=== PATIENT | female | born 1945 | race Caucasian/White ===

== ENCOUNTER 2016-10-28 22:45 | Inpatient (IN) | payer OTHER, MEDICARE ==
[~2016-10-28] VITALS: Ht 167.6 cm; Wt 76.2 kg
[2016-10-28 22:45] VITALS: BP 130/79; PULSE 92; RESP 20; TEMP 97.4; O2SAT 97
--- NOTE | 2016-10-28 23:14 | NUR ---
Placed in room 08 . Placed on pvc monitor, blood pressure machine and pulse oximeter. To gown for exam. Side rails up. Report given to MERARY Last.
--- NOTE | 2016-10-28 23:33 | NUR ---
Pt presents to ED with c/o nausea x2 hours, and lower abdominal pain 6/10. Pt denies weakness or dizziness. A&Ox4, denies SOb or chestpain, denies N/V/D. Skin intact. Will continue to monitor
--- NOTE | 2016-10-28 23:48 | NUR ---
ER at bedside examining patient.
--- NOTE | 2016-10-28 23:49 | NUR ---
Rishi brian in ED - 10/28/16 at 2350 by SDEDLJ YANELY Summers at bedside examining patient.
[2016-10-28] MEDS ORDERED: NACL 0.9% 1,000 ML IV ONE (23:55)
[2016-10-29 00:21] LABS: HEMATOCRIT 46.7 % (36-48); HEMOGLOBIN 15.6 g/dL (12.0-16.0); MEAN CORPUSCULAR HEMOGLOBIN 27 pg (27-31); MEAN CORPUSCULAR HGB CONC 34 % (32-36); MEAN CORPUSCULAR VOLUME 82 fL (79.0-98.0); PLATELET COUNT (AUTO) 246 K/uL (130-430); RED BLOOD CELL COUNT(AUTO) 5.71 MIL/uL (4.2-6.2); RED CELL DISTRIBUTION WIDTH 14.6 % (9.0-15.0)
[2016-10-29 00:24] LABS: ANION GAP 7 (5-15); CALCIUM 9.1 mg/dL (8.4-11.0); CHLORIDE 104 mmol/L (98-107); CREATININE 0.89 mg/dL (0.55-1.30); GLUCOSE 137 mg/dL (70-99); POTASSIUM 3.9 mmol/L (3.5-5.1); SODIUM SERUM 141 mmol/L (136-145); UREA NITROGEN, BLOOD 19 mg/dL (8-21)
[2016-10-29 00:35] LABS: ALANINE AMINOTRANSFERASE 23 U/L (12-78); ALBUMIN 3.8 g/dL (3.4-4.8); ASPARTATE AMINOTRANSFERASE 22 U/L (10-37); TOTAL BILIRUBIN 0.5 mg/dL (0.0-1.0); TOTAL PROTEIN, SERUM 7.5 g/dL (6.4-8.3)
--- NOTE | 2016-10-29 00:35 | NUR ---
Pt in bed appeared resting comfortably. daughter at bedside
[2016-10-29 00:45] LABS: BAND % (MANUAL) 4 % (0-6); BASOPHILS % (MANUAL) 0 % (0-2); EOSINOPHILS % (MANUAL) 0 % (0-7); LYMPHOCYTES % (MANUAL) 4 % (20-46); MONOCYTES % (MANUAL) 4 % (0-11)
[2016-10-29 00:51] LABS: BILIRUBIN,URINE NEGATIVE (NEGATIVE); BLOOD, URINE TRACE (NEGATIVE); CLARITY/URINE CLEAR (CLEAR); COLOR,URINE YELLOW (YELLOW); GLUCOSE,URINE NEGATIVE (NEGATIVE); KETONES,URINE NEGATIVE (NEGATIVE); LEUKOCYTE ESTERASE ,URINE NEGATIVE (NEGATIVE); NITRITE, URINE NEGATIVE (NEGATIVE); PH,URINE 5.5 (5.0-8.0); PROTEIN URINE TRACE (NEGATIVE); UROBILINOGEN,URINE 0.2 (0.2-1.0)
[2016-10-29 00:54] LABS: BACTERIA,URINE FEW /HPF (None Seen); MUCUS,URINE 1+ /LPF (None Seen); RBC,URINE 0-3 /HPF (0-3); WBC,URINE 0-3 /HPF (0-3)
[2016-10-29] MEDS ORDERED: NACL 0.9% 1,000 ML IV ONE (01:43)
--- NOTE | 2016-10-29 01:50 | NUR ---
Consent for CT abdomen/pelvis with contrast obtained. Pt verbalized understanding
[2016-10-29] MEDS ORDERED: MORPHINE 2 MG/ML INJ. SYRINGE IVP ONE ×2 (02:00)
[2016-10-29] MEDS ORDERED: ONDANSETRON HCL 4 MG/2 ML VIAL IVP ONE ×2 (02:00)
[2016-10-29] MEDS ORDERED: IOHEXOL 100 ML IV ONE (02:12)
--- NOTE | 2016-10-29 02:15 | NUR ---
pt taken off ED via wheelchair by radiologist for CT, no distress noted
--- NOTE | 2016-10-29 02:40 | NUR ---
Pt returned to ED
--- NOTE | 2016-10-29 03:00 | NUR ---
Medication reconciliation completed with information provided by pt. Any prior medication reconciliation on file was reviewed and corrected.
[2016-10-29] MEDS ORDERED: LEVO125T8 PO (03:50)
[2016-10-29] MEDS ORDERED: LETR2.5T3 PO (03:50)
[2016-10-29] MEDS ORDERED: LIP10 PO (03:50)
[2016-10-29] MEDS ORDERED: ONDANSETRON HCL 4 MG/2 ML VIAL IVP PRN (04:00)
[2016-10-29] MEDS ORDERED: MORPHINE 2 MG/ML INJ. SYRINGE IVP PRN (04:00)
--- NOTE | 2016-10-29 04:10 | NUR ---
Patient will be admitted to care of . Admitted to med-surg unit. Will go to room 103A. Belongings list completed. Summary report printed. Report given to Jose Zazueta
--- NOTE | 2016-10-29 04:10 | NUR ---
ADMISSION NOTE Received patient from ER via gurney. Patient admitted with diagnosis of A. Colitis. Patient is awake, alert, oriented X . Patient oriented to hospital room, call light, toileting, pain management and safety-teach back done. Patient informed that Jose will be her nurse and that their room number is 103A. Personal belongings checked and A. Belongings List documented. Call light within reach.
--- NOTE | 2016-10-29 04:15 | NUR ---
Initial Notes Received patient from ER via kaylie. Patient awake, alert, oriented, daughter at bedside. Patient denies any acute distress at this time. Breathing even and unlabored on room air. IV site to right forearm #20, patent/clean/dry. No complaints of nausea at this time. Educated patient on use of call light and fall precautions, patient verbalized understanding. Call light in hand, will continue to monitor.
[2016-10-29 04:29] VITALS: BP 152/75; PULSE 87; RESP 18; TEMP 97.2; O2SAT 98
--- NOTE | 2016-10-29 04:30 | NUR ---
Called Dr. Pastor's exchange for consult @[phone]. Spoke to Cait. Nurse is aware.
[2016-10-29] MEDS: D5/0.45 NS 1,000 ML IV SCH ×2 (04:52→19:45)
[2016-10-29] MEDS: metroNIDAZOLE 500 mg/NS 100 ML IV SCH ×3 (04:56→21:38)
[2016-10-29] MEDS ORDERED: metroNIDAZOLE 500 mg/NS 100 ML IV ONE (04:58)
[2016-10-29] MEDS ORDERED: LEVOFLOXACIN 500 MG/D5W 100 ML IV ONE (05:26)
[2016-10-29] MEDS: LEVOFLOXACIN 500 MG/D5W 100 ML IV SCH (05:57)
--- NOTE | 2016-10-29 06:46 | NUR ---
Closing Notes Patient resting in bed with eyes closed, easily aroused. Patient denies any distress or pain at this time. Breathing even and unlabored. IV site patent/clean/dry, no S/S infection/infiltration noted. Needs addressed throughout shift. Call light in hand, fall precautions in place. Will continue to monitor for changes and safety, and endorse all patient care/needs to oncoming nurse.
[2016-10-29 08:00] VITALS: BP 148/73; PULSE 80; RESP 18; TEMP 97.3; O2SAT 97
--- NOTE | 2016-10-29 08:00 | NUR ---
INITIAL NOTE PT LAYING IN BED, AWAKE, ALERT AND ORIENTED X4, NO S/S OF DISTRESS NOTED, VSS, NO COMPLAINT OF ABDOMINAL PAIN AT THIS TIME, IV FLUIDS INFUSING TO RFA, SITE PATENT AND INTACT, NO S/S OF INFILTRATION NOTED. PT COMPLAINED OF HEADACHE, PROVIDED ICE PACK TO HEAD AND WILL FOLLOW UP WITH MD. PT REORIENTED TO USE OF CALL LIGHT AND IT IS PLACED WITHIN REACH, SAFETY MEASURES IN PLACE, BED IN LOW POSITION AND LOCKED, WILL FOLLOW UP
--- NOTE | 2016-10-29 10:00 | NUR ---
DR CARBALLO AT BEDSIDE
[2016-10-29] MEDS ORDERED: ACETAMINOPHEN 325 MG TABLET PO PRN (10:45)
--- NOTE | 2016-10-29 11:50 | NUR ---
DR ALVINO CROWDER, PT LAYING IN BED, RESTING, EASY TO AROUSE. PT STATES SHE HAS NO NEEDS AT THIS TIME, WILL CONTINUE TO MONITOR.
[2016-10-29 12:46] VITALS: BP 134/85; PULSE 77; RESP 17; TEMP 97.6; O2SAT 96
--- NOTE | 2016-10-29 14:00 | NUR ---
PT ASSISTED TO RESTROOM, STEADY GAIT NOTED, NO S/S OF DISTRESS NOTED, PT TOLERATED, WELL. PT RETURNED TO BED, SAFETY MEASURES IN PLACE, CALL LIGHT WITHIN REACH, WILL FOLLOW UP.
[2016-10-29] MEDS ORDERED: PROMETHAZINE-DM 6.25 MG-15 MG/5 ML UDC PO PRN (15:15)
[2016-10-29] MEDS: ACETAMINOPHEN 325 MG TABLET PO PRN ×2 (15:31→19:45)
[2016-10-29 16:00] VITALS: BP 142/83; PULSE 78; RESP 18; TEMP 98; O2SAT 96
--- NOTE | 2016-10-29 16:00 | NUR ---
ROUNDS PT LAYING IN BED, STATES SHE HAS NO NEEDS AT THIS TIME, WILL CONTINUE TO MONITOR.
--- NOTE | 2016-10-29 19:00 | NUR ---
CLOSING NOTE PT LAYING IN BED, AWAKE, NO S/S OF DISTRESS NOTED, COMPLAINS OF SLIGHT HEADACHE, WILL ENDORSE TO FOLLOWING SHIFT, IV FLUIDS INFUSING TO RFA AT ORDERED RATE, SITE INTACT AND PATENT, NO S/S OF INFILTRATION NOTED. ALL NEEDS ATTENDED TO THROUGH OUT THE SHIFT, SAFETY MEASURES IN PLACE, CALL LIGHT WITHIN REACH, WILL ENDORSE CARE TO FOLLOWING SHIFT.
--- NOTE | 2016-10-29 19:30 | NUR ---
INITIAL ASSESSMENT: RECEIVE PT IN BED, AWAKE, ALERT AND ORIENTED , C/O HEADACHE 09/28, TOLERABLE, ON ROOM AIR, BREATHING EVENA DN NON LABORED, CHEST CLEAR, ABDOMEN SOFT AND NON DISTENDED, NO COMPLAINT OF ABDOMINAL PAIN AT THIS TIME, DENIES ANY NAUSEA AND VOMITING AT THIS TIME. VITAL STABLE, IV ON RIGHT FOREARM 20 G, INFUSING D51/2NS@ 80 CC/HR, INFUSING WELL, NO INFILTRATION NOTED, PT ABLE TO WALK TO BATHROOM WITH STEADY GAIT, BED SIDE COMMODE PROVIDED TO BEDSIDE FOR EASY ASSESS FOR NIGHTS. PLAN OF CARE DISCUSSED WITH PT AND VERBALIZED UNDERSTANDING, CALL LIGHT WITH IN REACH, SAFETY MEASURES IN PLACE, BED IN LOW POSITION AND LOCKED, WILL CONTINUE TO MONITOR.
--- NOTE | 2016-10-29 19:45 | NUR ---
ADMINISTERED MEDICATION: PT AWAKE, ALERT AND ORIENTED , C/O HEADACHE 09/28, ADMINISTERED TYLENOL 650 PO, ON ROOM AIR, BREATHING EVEN AND NON LABORED, NO COMPLAINT OF ABDOMINAL PAIN AT THIS TIME, DENIES ANY NAUSEA AND VOMITING AT THIS TIME. VITAL STABLE, IV ON RIGHT FOREARM 20 G, INFUSING D51/2NS@ 80 CC/HR, INFUSING WELL, NO INFILTRATION NOTED, PT ABLE TO WALK TO BATHROOM WITH STEADY GAIT, BED SIDE COMMODE AT BEDSIDE. CALL LIGHT WITH IN REACH, SAFETY MEASURES IN PLACE, BED IN LOW POSITION AND LOCKED, WILL CONTINUE TO MONITOR.
[2016-10-29 20:00] VITALS: BP 137/81; PULSE 74; RESP 18; TEMP 98.3; O2SAT 97
--- NOTE | 2016-10-29 21:07 | NUR ---
C/O ABDOMINAL DISCOMFORT: PT AWAKE, ALERT AND ORIENTED , ON ROOM AIR, BREATHING EVEN AND NON LABORED, PT C/O DISCOMFORT FOR ABDOMEN, PAGED DR JOSE CARBALLO AND SPOKE WITH MD AND RECEIVE ORDER FOR PROTONIX IVP, WILL ADMINISTERED. DENIES ANY NAUSEA AND VOMITING AT THIS TIME. VITAL STABLE, IV ON RIGHT FOREARM 20 G, INFUSING D51/2NS@ 80 CC/HR, INFUSING WELL, NO INFILTRATION NOTED, PT ABLE TO WALK TO BATHROOM WITH STEADY GAIT, BED SIDE COMMODE AT BEDSIDE. CALL LIGHT WITH IN REACH, SAFETY MEASURES IN PLACE, BED IN LOW POSITION AND LOCKED, WILL CONTINUE TO MONITOR.
[2016-10-29] MEDS ORDERED: PANTOPRAZOLE SODIUM 40 MG/VIAL (PROTONIX) IVP ONE (21:15)
[2016-10-30] VITALS: BP 127/77; PULSE 71; RESP 18; TEMP 98.7; O2SAT 98
--- NOTE | 2016-10-30 01:36 | NUR ---
RN ROUND: PT SLEEPING, EASILY AWAKE, ON ROOM AIR, BREATHING EVEN AND NON LABORED, DENIES ANY PAIN, NAUSEA AND VOMITING AT THIS TIME. VITAL STABLE, IV ON RIGHT FOREARM 20 G, INFUSING D51/2NS@ 80 CC/HR, INFUSING WELL, NO INFILTRATION NOTED, BED SIDE COMMODE AT BEDSIDE. CALL LIGHT WITH IN REACH, SAFETY MEASURES IN PLACE, BED IN LOW POSITION AND LOCKED, WILL CONTINUE TO MONITOR.
[2016-10-30 04:00] VITALS: BP 120/74; PULSE 77; RESP 18; TEMP 98.3; O2SAT 97
[2016-10-30] MEDS: D5/0.45 NS 1,000 ML IV SCH ×3 (05:00→20:46)
[2016-10-30] MEDS: LEVOFLOXACIN 500 MG/D5W 100 ML IV SCH (05:13)
[2016-10-30] MEDS: metroNIDAZOLE 500 mg/NS 100 ML IV SCH ×3 (05:14→22:04)
[2016-10-30] MEDS: ACETAMINOPHEN 325 MG TABLET PO PRN (05:42)
--- NOTE | 2016-10-30 05:45 | NUR ---
ROUND: PT AWAKE, ALERT AND ORIENTED , C/O HEADACHE 09/28, ADMINISTERED TYLENOL 650 PO, ON ROOM AIR, BREATHING EVEN AND NON LABORED, NO COMPLAINT OF ABDOMINAL PAIN AT THIS TIME, DENIES ANY NAUSEA AND VOMITING AT THIS TIME. VITAL STABLE, IV ON RIGHT FOREARM 20 G, INFUSING D51/2NS@ 80 CC/HR, INFUSING WELL, NO INFILTRATION NOTED, PT ABLE TO WALK TO BATHROOM WITH STEADY GAIT, CALL LIGHT WITH IN REACH, SAFETY MEASURES IN PLACE, BED IN LOW POSITION AND LOCKED, WILL CONTINUE TO MONITOR.
--- NOTE | 2016-10-30 06:27 | NUR ---
CLOSING NOTE: PT AWAKE, ALERT AND ORIENTED, ON ROOM AIR, BREATHING EVEN AND NON LABORED, NO COMPLAINT OF ABDOMINAL PAIN AT THIS TIME, DENIES ANY NAUSEA AND VOMITING AT THIS TIME. VITAL STABLE, IV ON RIGHT FOREARM 20 G, INFUSING D51/2NS@ 80 CC/HR, INFUSING WELL, NO INFILTRATION NOTED, PT ABLE TO WALK TO BATHROOM WITH STEADY GAIT, CALL LIGHT WITH IN REACH, SAFETY MEASURES IN PLACE, BED IN LOW POSITION AND LOCKED, WILL ENDORSE TO AM NURSE.
[2016-10-30 07:16] LABS: ALBUMIN 2.9 g/dL (3.4-4.8); BILIRUBIN,DIRECT 0.1 mg/dL (0.0-0.3); TOTAL BILIRUBIN 0.3 mg/dL (0.0-1.0); TOTAL PROTEIN, SERUM 6.3 g/dL (6.4-8.3)
--- NOTE | 2016-10-30 07:27 | NUR ---
REPORT GIVEN TO MANUEL REAGAN. PT STABLE AND NO DISTRESS.
[2016-10-30 08:06] VITALS: BP 135/85; PULSE 70; RESP 18; TEMP 97.5; O2SAT 97
--- NOTE | 2016-10-30 08:15 | NUR ---
INITIAL NOTE PT LAYING IN BED, EASY TO AROUSE, NO S/S OF DISTRESS NOTED, COMPLAINT OF MILD, LINGERING HEADACHE, IV TO RFA INTACT AND INFUSING AT ORDERED RATE, NO S/S OF INFILTRATION NOTED, EVEN UNLABORED BREATHING ON ROOM AIR, PT REORIENTED TO USE OF CALL LIGHT AND IT IS PLACED WITHIN REACH, SAFETY MEASURES IN PLACE, BED IN LOW POSITION AND LOCKED, WILL CONTINUE TO MONITOR,
[2016-10-30] MEDS: PANTOPRAZOLE SODIUM 40 MG/VIAL (PROTONIX) IVP SCH (08:57)
[2016-10-30] MEDS: KETOROLAC TROMETHAMINE 15 MG VIAL IVP PRN ×2 (08:58→22:04)
--- NOTE | 2016-10-30 10:00 | NUR ---
ROUNDS PT ASSISTED IN PARTIAL BED BATHE AND LINEN CHANGED. SITTING ON BEDSIDE CHAIR, WITH STUDENTS AT BEDSIDE, PT STATES SHE HAS NO PAIN AT THIS TIME, CALL LIGHT WITHIN REACH, WILL FOLLOW UP.
[2016-10-30 10:33] LABS: BASOPHILS % (AUTO) 0.4 % (0.0-2.0); EOSINOPHILS # (AUTO) 0.2 K/uL (0.0-0.4); EOSINOPHILS % (AUTO) 4.3 % (0.0-4.0); HEMATOCRIT 42.8 % (36-48); LYMPHOCYTES # (AUTO) 1.2 K/uL (1.0-5.5); LYMPHOCYTES % (AUTO) 28.8 % (20.5-51.5); MEAN CORPUSCULAR HEMOGLOBIN 28 pg (27-31); MEAN CORPUSCULAR HGB CONC 33 % (32-36); MONOCYTES # (AUTO) 0.6 K/uL (0.0-1.0); NEUTROPHILS # (AUTO) 2.1 K/uL (1.8-7.7); NEUTROPHILS % (AUTO) 52.5 % (40.0-70.0); PLATELET COUNT (AUTO) 190 K/uL (130-430); RED BLOOD CELL COUNT(AUTO) 5.07 MIL/uL (4.2-6.2); RED CELL DISTRIBUTION WIDTH 14.7 % (9.0-15.0); WHITE BLOOD COUNT (AUTO) 4.1 K/uL (4.8-10.8)
[2016-10-30 10:51] LABS: ALANINE AMINOTRANSFERASE 30 U/L (12-78); ANION GAP 6 (5-15); ASPARTATE AMINOTRANSFERASE 24 U/L (10-37); CALCIUM 8.3 mg/dL (8.4-11.0); CHLORIDE 110 mmol/L (98-107); CREATININE 0.79 mg/dL (0.55-1.30); GLUCOSE 83 mg/dL (70-99); POTASSIUM 3.3 mmol/L (3.5-5.1); SODIUM SERUM 144 mmol/L (136-145); TOTAL BILIRUBIN 0.2 mg/dL (0.0-1.0); TOTAL PROTEIN, SERUM 6.4 g/dL (6.4-8.3); UREA NITROGEN, BLOOD 5 mg/dL (8-21)
[2016-10-30 10:59] LABS: MEAN CORPUSCULAR VOLUME 85 fL (79.0-98.0)
[2016-10-30 11:34] VITALS: BP 136/98; PULSE 77; RESP 19; TEMP 97.1; O2SAT 98
--- NOTE | 2016-10-30 12:00 | NUR ---
ROUNDS PT SITTING UP IN BED, READING, NO COMPLAINT OF ABDOMINAL PAIN OR HEADACHE AT THIS TIME, PT STATES SHE HAS NO NEED, CALL LIGHT WITHIN REACH, WILL FOLLOW UP.
--- NOTE | 2016-10-30 14:30 | NUR ---
ROUNDS ADMINISTERED IV ANTIBIOTIC AT THIS TIME, SITE PATENT AND INTACT, NO COMPLAINT OF HEADACHE OR ABDOMINAL, LAB RESULTS RELAYED PER PATIENT REQUEST, PLAN OF CARE DISCUSSED, WILL FOLLOW UP
[2016-10-30 15:41] VITALS: BP 153/92; PULSE 83; RESP 18; TEMP 97.6; O2SAT 99
--- NOTE | 2016-10-30 17:00 | NUR ---
DR DE OLIVEIRA AT BEDSIDE
--- NOTE | 2016-10-30 17:30 | NUR ---
PER PATIENT, SHE STATED THAT SHE HAD TOLD DR DE OLIVEIRA THAT SHE DID NOT HAVE ABDOMINAL PAIN OR DISCOMFORT ALL DAY AND FELT RESTED AND READY TO GO HOME. PATIENT REQUESTED THAT I PLEASE FIND MD AND TELL HIM THAT SHE JUS T STARTED TO HAVE ABDOMINAL PAIN, GAS AND UNEASINESS. MD STILL IN FACILITY AND INFORMED. WILL FOLLOW UP.
--- NOTE | 2016-10-30 19:00 | NUR ---
CLOSING NOTE PT LAYING IN BED, SON AT BEDSIDE, NO S/S OF DISTRESS OR HEADACHE, COMPLAINS OF HAVING GAS AND UNCOMFORTABLE ABDOMINAL FEELING, WILL RELAY TO FOLLOW SHIFT, IV FLUIDS INFUSING TO RFA AT ORDERED RATE, SITE PATENT AND INTACT. ALL NEEDS ATTENDED TO THROUGH OUT SHIFT, SAFETY MEASURES MAINTAINED, BED IN LOW POSITION AND LOCKED, CALL LIGHT WITHIN REACH, WILL GIVE REPORT TO FOLLOWING SHIFT.
--- NOTE | 2016-10-30 20:00 | NUR ---
opening note received pt awake sitting up in bed. a/o x4. iv to right forearm iv fluid d51/2ns at 80ml/h. no c/o pain. no n/v. son at bedside. comm board updated. poc discussed with pt. safety precautions in place.
[2016-10-30] MEDS: LACTOBACILLUS RHAMNOSUS GG 1 CAP CAPSULE PO SCH (20:46)
--- NOTE | 2016-10-31 | NUR ---
RESTING PT COMFORTABLE. NO S/S DISTRESS. ALL NEEDS MET AT THIS TIME.
[2016-10-31 00:25] VITALS: BP 142/85; PULSE 81; RESP 18; TEMP 98.2; O2SAT 96
[2016-10-31 04:30] VITALS: BP 138/78; PULSE 68; RESP 17; TEMP 98.2; O2SAT 97
[2016-10-31] MEDS: LEVOFLOXACIN 500 MG/D5W 100 ML IV SCH (04:41)
--- NOTE | 2016-10-31 04:45 | NUR ---
ROUNDS PT CONTINUES TO REST. NO CHANGES NOTED. IV ANTIBIOTIC INFUSING WELL TO RIGHT ARM. SAFETY PRECAUTIONS IN PLACE.
[2016-10-31] MEDS: metroNIDAZOLE 500 mg/NS 100 ML IV SCH ×2 (05:47→13:45)
--- NOTE | 2016-10-31 05:50 | NUR ---
rounds pt resting comfortably. no s/s distress. will continue to monitor.
[2016-10-31] MEDS: ACETAMINOPHEN 325 MG TABLET PO PRN (06:45)
--- NOTE | 2016-10-31 06:45 | NUR ---
headache tylenol given as ordered for headache.
--- NOTE | 2016-10-31 06:50 | NUR ---
reconcile meds pt has not taken home meds. will endorse to morning nurse to follow up with md/med rec
--- NOTE | 2016-10-31 07:30 | NUR ---
am rounds: patient in the room.report given by night nurse.ivf on going at right forearm intact. stable.
[2016-10-31 08:23] VITALS: BP 142/87; PULSE 78; RESP 19; TEMP 96.5; O2SAT 98
[2016-10-31] MEDS: PANTOPRAZOLE SODIUM 40 MG/VIAL (PROTONIX) IVP SCH (08:27)
[2016-10-31] MEDS: LACTOBACILLUS RHAMNOSUS GG 1 CAP CAPSULE PO SCH (08:27)
--- NOTE | 2016-10-31 09:00 | NUR ---
rounds: took her meds well. stable.
--- NOTE | 2016-10-31 10:30 | NUR ---
rounds: stable. no complained made.
[2016-10-31 12:10] VITALS: BP 139/74; PULSE 71; RESP 16; TEMP 97.1; O2SAT 98
--- NOTE | 2016-10-31 12:29 | NUR ---
rounds: having lunch. at bedside.
--- NOTE | 2016-10-31 14:10 | NUR ---
rounds: resting.stable.
--- NOTE | 2016-10-31 16:15 | NUR ---
rounds: no problem. tolerated mech soft diet.
[2016-10-31 16:48] VITALS: BP 138/78; PULSE 60; RESP 17; TEMP 96.9; O2SAT 99
[2016-10-31] MEDS ORDERED: POTASSIUM CHLORIDE 20 MEQ TAB.PRT.SR PO ONE (18:15)
--- NOTE | 2016-10-31 18:20 | NUR ---
md rounds: pt seen by dr yumiko miller with orders continue home meds upon dc /f/u with dr caro in 1 week.
[2016-10-31 18:25] VITALS: BP 138/78; PULSE 60; RESP 18; TEMP 96.9
--- NOTE | 2016-10-31 18:50 | NUR ---
dc notes: transition care documents given to patient.patient verbalized understanding.iv removed,dry gauze applied,no bleeding noted.accompanied home by her in stable condition.
== END 2016-10-31 18:50 | disposition home or self-care (01) | DRG 392 ==
LOC: SED 22:45 → SMU 23:34
PROVIDERS: ADMIT Family Medicine; ATTEND Family Medicine
DX: A05.9 Bacterial foodborne intoxication, unspecified (principal); E03.9 Hypothyroidism, unspecified; E78.00 Pure hypercholesterolemia, unspecified; I10 Essential (primary) hypertension; E78.5 Hyperlipidemia, unspecified; J06.9 Acute upper respiratory infection, unspecified; Z85.3 Personal history of malignant neoplasm of breast; Z85.850 Personal history of malignant neoplasm of thyroid
CPT/HCPCS: 36415; 80053; 80076; 81000-TC; 83605; 85007; 85025; 85027; 87040-TC; 87045-TC; 87046; 87177; 87230-TC; 89055; 96361; 96374; 96375; 96376; 99285; C9113; J1885; J1956; J2270; J2405; J3490; J7030; Q9967

== ENCOUNTER 2017-01-11 19:22 | Emergency (ER) | payer OTHER, MEDICARE ==
[~2017-01-11] VITALS: Ht 167.6 cm; Wt 73.0 kg
[~2017-01-11 19:22] MED LIST: LETR2.5T3 PO; LEVO125T8 PO; LIP10 PO
[2017-01-11 20:30] VITALS: BP 138/81; PULSE 64; RESP 14; TEMP 98; O2SAT 98
[2017-01-11 21:24] LABS: BASOPHILS # (AUTO) 0.1 K/uL (0.0-0.2); BASOPHILS % (AUTO) 0.8 % (0.0-2.0); EOSINOPHILS # (AUTO) 0.3 K/uL (0.0-0.4); EOSINOPHILS % (AUTO) 3.7 % (0.0-4.0); HEMATOCRIT 41.3 % (36-48); HEMOGLOBIN 13.7 g/dL (12.0-16.0); LYMPHOCYTES # (AUTO) 2.1 K/uL (1.0-5.5); MEAN CORPUSCULAR HEMOGLOBIN 28 pg (27-31); MEAN CORPUSCULAR HGB CONC 33 % (32-36); MEAN CORPUSCULAR VOLUME 85 fL (79.0-98.0); MONOCYTES # (AUTO) 0.6 K/uL (0.0-1.0); MONOCYTES % (AUTO) 9.4 % (1.7-9.3); NEUTROPHILS # (AUTO) 3.8 K/uL (1.8-7.7); NEUTROPHILS % (AUTO) 55.1 % (40.0-70.0); PLATELET COUNT (AUTO) 199 K/uL (130-430); RED BLOOD CELL COUNT(AUTO) 4.84 MIL/uL (4.2-6.2); RED CELL DISTRIBUTION WIDTH 14.4 % (9.0-15.0); WHITE BLOOD COUNT (AUTO) 6.9 K/uL (4.8-10.8)
[2017-01-11 21:29] LABS: ANION GAP 9 (5-15); CALCIUM 8.3 mg/dL (8.4-11.0); CHLORIDE 107 mmol/L (98-107); CREATININE 0.81 mg/dL (0.55-1.30); GLUCOSE 97 mg/dL (70-99); POTASSIUM 3.4 mmol/L (3.5-5.1); SODIUM SERUM 146 mmol/L (136-145); UREA NITROGEN, BLOOD 17 mg/dL (8-21)
[2017-01-11 21:37] LABS: ALANINE AMINOTRANSFERASE 19 U/L (12-78); ALBUMIN 3.3 g/dL (3.4-4.8); ASPARTATE AMINOTRANSFERASE 18 U/L (10-37); TOTAL BILIRUBIN 0.2 mg/dL (0.0-1.0); TOTAL PROTEIN, SERUM 6.6 g/dL (6.4-8.3)
[2017-01-11] MEDS ORDERED: ACETAMINOPHEN 500 MG TABLET PO ONE (22:45)
[2017-01-12 00:13] VITALS: BP 135/80; PULSE 64; RESP 14; TEMP 98; O2SAT 98
== END 2017-01-12 00:13 | disposition home or self-care (01) ==
LOC: SED 19:22
DX: M79.602 Pain in left arm (principal)
CPT/HCPCS: 36415; 73060-TC; 80053; 84484; 85025; 93005; 93971; 99285

== ENCOUNTER 2017-03-16 14:42 | Emergency (ER) | payer OTHER, MEDICARE ==
[~2017-03-16] VITALS: Ht 167.6 cm; Wt 75.3 kg
[2017-03-16 15:14] VITALS: BP_SYST 110
--- NOTE | 2017-03-16 15:14 | NUR ---
Patient triaged and placed in waiting room. VSS and patient appears in no acute distress at this time. Accompanied by family, awaiting available bed, and MD notified of need for MSE.
--- NOTE | 2017-03-16 16:30 | NUR ---
PATIENT EXPRESSING CONCERN OVER WAIT TIMES STATING THEY WANT TO LEAVE. APOLOGIZED FOR WAIT TIME ENCOURAGED PATIENT TO STAY, PATIENT CONTINUED TO REQUEST TO LEAVE. INFORMED TO PLEASE RETURN SOBEIDA AND TO F/U WITH PMD. PT AMBULATED WITH STEADY UNASSISTED GAIT OUTSIDE. DR. CARRILLO MADE AWARE
--- NOTE | 2017-03-16 17:00 | NUR ---
attempted to place patient in room 8 unable to locate patient in wr or outside
--- NOTE | 2017-03-16 17:10 | NUR ---
unable to locate in wr or outside
--- NOTE | 2017-03-16 17:30 | NUR ---
unable to locate patient in wr or outside
== END 2017-03-16 16:30 | disposition left against medical advice (07) ==
LOC: SED 14:42
DX: R10.9 Unspecified abdominal pain (principal); Z53.21 Procedure and treatment not carried out due to patient leaving prior to being seen by health care provider

== ENCOUNTER 2022-12-03 19:46 | Emergency (ER) | payer OTHER, MEDICARE ==
[~2022-12-03 19:46] MED LIST changes: +FEM2.5 PO; -LETR2.5T3 PO
[2022-12-03 20:35] VITALS: BP_SYST 147
--- NOTE | 2022-12-03 20:46 | NUR ---
Patient triaged and placed in waiting room. VSS and patient appears in no acute distress at this time. Accompanied by SON, awaiting available bed, and MD notified of need for MSE.
== END 2022-12-03 23:30 | disposition home or self-care (01) ==
LOC: SED 19:46
DX: S00.03XA Contusion of scalp, initial encounter (principal); E78.5 Hyperlipidemia, unspecified; Z88.1 Allergy status to other antibiotic agents; Z79.899 Other long term (current) drug therapy; W01.0XXA Fall on same level from slipping, tripping and stumbling without subsequent striking against object, initial encounter; Y93.89 Activity, other specified; Y92.89 Other specified places as the place of occurrence of the external cause; Y99.8 Other external cause status
CPT/HCPCS: 70450-TC; 72125-TC; 76376; 99284